=== PATIENT | male | born 1970 | race Caucasian/White ===

== ENCOUNTER 2023-06-04 09:44 | Emergency (ER) | payer BC, SELFPAY ==
[2023-06-04 10:15] VITALS: BP 114/78; PULSE 112; RESP 20; TEMP 36.6; O2SAT 95; BMI 27.1
[2023-06-04 11:22] LABS: PCR FLU A POSITIVE PCR FLU A (Negative); PCR FLU B Negative PCR FLU B (Negative); PCR RSV Negative PCR RSV (Negative)
[2023-06-04 11:23] LABS: SARS PCR* Negative SARS-CoV-2 (Negative)
--- NOTE | 2023-06-04 11:35 | ED.GENADULT ---
HPI - General Adult General Time Seen by Provider: 11:35 Date Seen: 06/04/23 Chief complaint: Cough Stated complaint: Body aches, fatigue Time Seen by Provider: 06/04/23 11:35 Source: patient and RN notes reviewed Mode of arrival: ambulatory Limitations: no limitations History of Present Illness HPI narrative: This 53-year-old male is coming in with concern of illness. He is here for the holiday, visiting family, from [place]. Yesterday he came down with congestion, cough, fevers, fatigue, body aches. He had 1 solitary episode of diarrhea this morning. Denies any abdominal symptoms otherwise. Negative home COVID test. Has not taken any ibuprofen or Tylenol today. He does have underlying asthma, states he does a lot of exercise baseline to keep his lungs healthy. He did use his albuterol with this illness, this was the 1st time using it in a long time. Related Data Previous Rx's Medication Instructions Recorded oseltamivir 75 mg capsule (Tamiflu) 75 mg PO BID 5 days #10 caps 06/04/23 prednisone 20 mg tablet 20 mg PO BID #10 tabs 06/04/23 Allergies Allergy/AdvReac Type Severity Reaction Status Date / Time No Known Drug Allergies Allergy Verified 06/04/23 10:18 Review of Systems Status of ROS: Reports: 6 or more systems reviewed and unremarkable except as noted in History and below [facility] Social History Smoking Status: Never smoker How often do you have a drink containing alcohol: 2-3 times a week How many standard drinks containing alcohol do you have on a typical day: 1 or 2 How often do you have six or more drinks on one occasion: Never AUDIT-C Alcohol total score: 3 Non-prescribed substance use: denies use Exam Const: Vital Signs, click to edit/add: Vital Signs - 24 hr 06/04/23 10:15 06/04/23 11:47 Temperature 97.8 F Pulse Rate [Pulse Oximeter] 112 H 104 H Respiratory Rate 20 20 Blood Pressure [Ri ght Upper Arm] 114/78 127/86 Pulse Oximetry 95 96 Oxygen Delivery Me thod Room Air Room Air Patient is a 53-year-old male that is alert, interactive, no apparent distress, did watch him ambulate back into exam room 3. He is not hypoxic. Sclera clear, conjugate gaze. Able to speak in complete sentences. Neck is supple, no cervical adenopathy, no jugular venous distention noted. Lungs are clear, good air entry, no wheezing or crackles. Breath sounds are not distant, can hear them well. CV regular rate and rhythm, no murmur, normal S1-S2, no S3-S4. Documenting provider has reviewed patient's vital signs: yes Course Course ED Course: This patient did have a triple swab done by nursing staff, by the time I was able to see him I am able to report to him that he is positive for influenza A. We did discuss Tamiflu, do recommended for him as he is in the 48 hour window in does have asthma. Right now his asthma sounds well controlled come here no wheezing. We did discuss sending him with a prescription for prednisone in case he should start becoming more bronchospastic or the influenza aggravate is asthma. He agrees. I do not see any indication for further labs or any need for any chest imaging, within about 24 hours of the onset influenza and currently hemodynamically stable with clear lungs. Plan to treat with Tamiflu, prednisone if asthma exacerbates, recheck if concerns but otherwise stable to discharge to trial of outpatient management at this time. Vital Signs Vital signs: Initial Vital Signs Temperature 97.8 F 06/04/23 10:15 Temperature Source Temporal Artery Scan 06/04/23 10:15 Pulse Rate 112 H 06/04/23 10:15 Pulse Rhythm Regular 06/04/23 10:15 Pulse Strength 3+ Normal 06/04/23 10:15 Respiratory Rate 20 06/04/23 10:15 Blood Pressure 114/78 06/04/23 10:15 Blood Pressure Mean 90 06/04/23 10:15 Blood Pressure Position Sitting 06/04/23 10:15 Pulse Oximetry 95 06/04/23 10:15 Oxygen Delivery Method Room Air 06/04/23 10:15 Vital Signs Temperature 97.8 F 06/04/23 10:15 Pulse Rate 112 H 06/04/23 10:15 Respiratory Rate 20 06/04/23 10:15 Blood Pressure 114/78 06/04/23 10:15 Pulse Oximetry 95 06/04/23 10:15 Oxygen Delivery Method Room Air 06/04/23 10:15 Temperature 97.8 F 06/04/23 10:15 Pulse Rate 104 H 06/04/23 11:47 Respiratory Rate 20 06/04/23 11:47 Blood Pressure 127/86 06/04/23 11:47 Pulse Oximetry 96 06/04/23 11:47 Oxygen Delivery Method Room Air 06/04/23 11:47 Medical Decision Making Lab Data Lab results reviewed: Yes I reviewed the patient's lab results Labs: Lab Results 06/04/23 Range/Units 10:14 SARS-CoV-2 (PCR) Negative SARS-CoV-2 (Negative) Influenza Type A (PCR) POSITIVE PCR FLU A A (Negative) Influenza Type B (PCR) Negative PCR FLU B (Negative) RSV (PCR) Negative PCR RSV (Negative) Discharge Plan Discharge Clinical Impression: Influenza A Patient Disposition: Home, Self-Care Condition: Stable Instructions: Influenza (ED) Additional Instructions: Start Tamiflu ALINE today, needs to be started within 48 hours of onset of symptoms to be effective. Have also sent in a prescription for steroids for you because you have asthma. If you feel your cough is becoming tighter, start wheezing, feel like your asthma is aggravating with this respiratory viral illness, please feel free to start it. If you have any concerns at all about your status or breathing, always recommend seeking re-evaluation. Typically influenza contagiousness last for 5-7 days. Activity Level: Activity as Tolerated Prescriptions: New oseltamivir [Tamiflu] 75 mg capsule 75 mg PO BID 5 Days Qty: 10 0RF prednisone 20 mg tablet 20 mg PO BID Qty: 10 0RF Stand Alone Forms: [employer] Info Instructions
[2023-06-04 11:47] VITALS: BP 127/86; PULSE 104; RESP 20; O2SAT 96
== END 2023-06-04 11:56 | disposition home or self-care (01) ==
LOC: ED 11:50
PROVIDERS: Emergency Provider Family Medicine
DX: J10.1 Influenza due to other identified influenza virus with other respiratory manifestations (principal)
CPT/HCPCS: 87631; 99283